=== PATIENT | male | born 1955 | race Caucasian/White ===

== ENCOUNTER 2022-05-08 10:39 | Emergency (ER) | payer MEDICARE, MEDICAID ==
[~2022-05-08] VITALS: Ht 180.3 cm; Wt 77.0 kg
== END 2022-05-08 13:42 | disposition home or self-care (01) ==
LOC: ER 10:40
DX: H61.22 Impacted cerumen, left ear (principal)
CPT/HCPCS: 69209; 99282; J7030

== ENCOUNTER 2025-03-23 11:36 | Outpatient (CLI) | payer MEDICARE, MEDICAID ==
--- NOTE | 2025-03-26 16:58 | CONSULTATION ---
DATE OF CONSULTATION: 03/23/2025 DICTATING PHYSICIAN: Barbara Baker M.S., [facility] MODIFIED BARIUM SWALLOW STUDY REPORT REFERRING PHYSICIAN: Farida Quan MD HISTORY OF PRESENT ILLNESS: The patient is a 69-year-old male and consents to this evaluation. The patient reports symptoms of dysphagia including feeling that he has a hard time coordinating his swallowing. He notes that he has had a history of dysphagia. He received speech therapy in about 2012 in [place] and had a barium swallow study that was at that time, which came back normal. The patient has not had any weight loss. He notes that he has COPD, which began about 13 years ago and he had gastritis with esophagitis couple of years ago. He notes that he does okay with water, but when it comes to coordinating, eating and drinking water at the same time that he has trouble with that coordination. CURRENT DIET: The patient does not consume caffeine. He does not utilize tobacco products or drink alcohol. He does not consume chocolate or dairy. Typical breakfast consists of a fruit smoothie with oatmeal. A typical lunch is pancakes every other day or on the other days veggies, eggs, and rice. A typical dinner is eaten at 3:00 p.m. and may be a rapp and rice burrito with nothing spicy on it or a sandwich. He does not snack at any point and he goes to bed at 7:00 p.m. MEDICATIONS: Qvar 80 mcg, ipratropium/albuterol, loratadine 10 mg, tamsulosin 0.4 mcg, Modafonil 100 mg. PARAMETERS: The patient is seated in a lateral 90-degree view and administered the usual protocol of thin and nectar thick liquids, puree and solid consistencies as well as self-regulated boluses of thin liquids from a cup. RESULTS: The patient was easily able to transfer the bolus from the anterior to the posterior oral cavity. There did not appear to be any difficulty with strength or range of motion of the tongue. In the pharyngeal stage of the swallow, there was a mild pharyngeal residue at the level of the vallecula and the patient spontaneously completed second swallows as needed. Elevation of the hyothyroid complex was accomplished with full range of motion. The patient was noted to have a delayed swallow initiation to the level of the piriform. PES opening was within functional limits. At no time had the patient noted to penetrate or aspirate on any of the bolus sizes or consistencies. ANTERIOR, POSTERIOR VIEW: In the AP plane, the bolus split symmetrically between the piriform sinuses with no proximal movement noted. IMPRESSION: The patient demonstrates with what appears to be a mild oropharyngeal stage swallowing disorder characterized by delayed swallow initiation at the level of the piriform. The patient is concerned about what may be causing the swallow initiation that is delayed and as there appears to be no difficulty with strength involved in swallowing, the neurological component cannot be ruled out. DIAGNOSES: R13.12, dysphagia, oropharyngeal phase; R05.3, chronic cough. PATIENT EDUCATION: Immediately following modified barium swallow study, the patient was able to view the results. He was able to see the delayed swallow initiation. He was educated on a recommendation for neurological consult regarding this delayed swallow initiation as he was very concerned about this. He was also educated on the EMST 150 to help coordinate breathing and swallowing. Due to his diagnosis of COPD, he was instructed to get physician clearance to utilize this device, but should he get clearance and need assistance in utilizing, he was instructed to contact this clinician for education. RECOMMENDATIONS: * It is recommended that the patient receive a neurological consult regarding delayed swallow initiation. * It is recommended that the patient follow up with physician regarding clearance for utilizing the EMST 150 to coordinate breathing and swallowing. Should he need assistance with this device, it would then be recommended that he contact this clinician for swallowing therapy for instruction and utilization. LONG-TERM GOALS: The patient will maintain adequate hydration/nutrition with optimum safety and efficiency of swallow function on p.o. intake without overt signs and symptoms of aspiration for the highest possible diet level. PROGNOSIS: Prognosis for the patient is good based on patient motivation and willingness to learn. FUNCTIONAL ORAL INTAKE: The FOIS was administered to establish and document a change in the functional eating activities of this patient over time. This is a 7-point scale with 1 indicating no oral intake and totally tube dependent and 7 indicating total oral intake with no restrictions. This patient received a 6, which indicates he has a total oral diet with multiple consistencies without special preparation, but with specific food limitations and precautions, those being previously instructed on dietary modifications for laryngopharyngeal reflux disease. G-CODE: [id number] Thank you very much for asking me to participate in the care of this kind patient. Should you have any questions regarding this evaluation or recommendations, please do not hesitate to contact me at [phone]. During this examination, 2.20 minutes of fluoroscopy time and 6.59 CAK mGy were utilized. Barbara Baker M.S., [facility] TID: [id number] RECEIPT: [id number] ESAU/RHEA HASSAN
== END 2025-03-23 23:59 | disposition home or self-care (01) ==
LOC: RAD 11:36
PROVIDERS: ATTEND Emergency Medicine
DX: R13.10 Dysphagia, unspecified (principal)
CPT/HCPCS: 74230